=== PATIENT | male | born 1950 | race Caucasian/White ===

== ENCOUNTER → 2018-03-12 | Outpatient (CLI) | payer MEDICARE, MEDICAID ==
--- NOTE | 2018-03-12 17:14 | PCVCIMAG ---
EXAM: BILATERAL CAROTID DUPLEX INDICATION: Carotid Occlusive Disease. FINDINGS: Doppler Measurements (centimeters per second): RIGHT: Peak CCA-69, Peak ECA-60, Diastolic ICA-21, Peak ICA-66, ICA/CCA Ratio-1.0. LEFT: Peak CCA-71, Peak ECA-80, Diastolic ICA-23, Peak ICA-76, ICA/CCA Ratio-1.1. RIGHT CAROTID: The carotid bulb has mild plaque. The proximal internal carotid artery shows <40% stenosis. The common carotid artery shows no significant stenosis. The external carotid artery shows no significant stenosis. LEFT CAROTID: The carotid bulb has no significant plaque. The proximal internal carotid artery shows no significant stenosis. The common carotid artery shows no significant stenosis. The external carotid artery shows no significant stenosis. Antegrade flow in both vertebral arteries. IMPRESSION: <40% stenosis of the right internal carotid artery with mild plaque. No significant stenosis of the left internal carotid artery with no significant plaque. LOC:[place] [id number]
--- NOTE | 2018-03-12 17:18 | PCVCIMAG ---
APPROVED REPORT Study performed: 03/12/2018 14:16:22 EXAM: Comprehensive 2D, Doppler, and color-flow Echocardiogram Patient Location: Echo lab [facility] BSA: 1.95 HR: 70 bpmBP: 140/80 mmHg Rhythm: NSR Other Information Study Quality: Good Risk Factors: Cardiac Risk Factors: HTN Indications Fatigue Chest Pain 2D Dimensions IVSd: 8.74 (7-11mm)LVOT Diam: 21.75 (18-24mm) LVDd: 45.46 mm PWd: 7.09 (7-11mm)Ascending Ao: 36.79 (22-36mm) LVDs: 25.09 (25-40mm) Left Atrium: 35.79 (27-40mm) Aortic Root: 30.17 mm LV Single Plane 4CH: 55.13 % LV Single Plane 2CH: 65.90 %Jeffery's LVEF: 60.51 % Biplane EF: 61.4 % Volumes Left Atrial Volume (Systole) Single Plane 4CH: 48.33 mLSingle Plane 2CH: 72.90 mL Biplane LA Volume: 63.00 mLLA ESV Index: 32.00 mL/m2 Aortic Valve AoV Peak Pedrito.: 1.47 m/s AO Peak Gr.: 8.65 mmHgLVOT Max P.11 mmHg LVOT Max V: 1.01 m/s WALDO Vmax: 2.56 cm2 Mitral Valve E/A Ratio: 1.5 MV Decel. Time: 116.34 ms MV E Max Pedrito.: 0.80 m/s MV A Pedrito.: 0.54 m/s IVRT: 62.28 ms TDI E/Lateral E': 7.27E/Medial E': 10.00 Medial E' Pedrito.: 0.08 m/s Lateral E' Pedrito.: 0.11 m/s Pulmonary Valve PV Peak Pedrito.: 1.04 m/sPV Peak Gr.: 4.29 mmHg Pulmonary Vein P Vein S: 0.65 m/sP Vein A: 0.24 m/s P Vein D: 0.60 m/sP Vein A Dur.: 58.8 msec P Vein S/D Ratio: 1.08 Tricuspid Valve TR Peak Pedrito.: 2.30 m/s TR Peak Gr.: 21.13 mmHg TV Vmax: 0.84 m/sPA Pressure: 28.00 mmHg Left Ventricle The left ventricle is normal size. Distal septal hypokinesis. There is normal left ventricular wall thickness. Left ventricular systolic function is normal. The left ventricular ejection fraction is within the normal range. LVEF is 60-65%. The left ventricular diastolic function is normal. Right Ventricle The right ventricle is normal size. The right ventricular systolic function is normal. Atria The left atrium size is normal. The right atrium size is normal. Aortic Valve Aortic valve is trileaflet. No aortic regurgitation is present. There is no aortic valvular stenosis. Mitral Valve The mitral valve is normal in structure. There is no mitral valve regurgitation noted. No evidence of mitral valve stenosis. Tricuspid Valve The tricuspid valve is normal in structure. Trace to mild tricuspid regurgitation with a PA pressure of 28 mmHg. Pulmonic Valve The pulmonary valve is normal in structure. There is no pulmonic valvular regurgitation. Great Vessels The aortic root is normal in size. The ascending aorta is normal in size. Aortic arch is normal in caliber. IVC is normal in size and collapses with >50% inspiration Pericardium There is no pericardial effusion. There is no pleural effusion. <Conclusion> The left ventricle is normal size. Distal septal hypokinesis. LVEF is 60-65%. The left ventricular diastolic function is normal. The left atrium size is normal. Aortic valve is trileaflet. There is no aortic valvular stenosis. There is no mitral valve regurgitation noted. Trace to mild tricuspid regurgitation with a PA pressure of 28 mmHg. The aortic root is normal in size. There is no pericardial effusion.
== END | disposition home or self-care (01) ==
LOC: PCVCIMAG 14:57
PROVIDERS: ATTEND Internal Medicine Cardiovascular Disease
DX: I65.21 Occlusion and stenosis of right carotid artery (principal); R07.9 Chest pain, unspecified; I10 Essential (primary) hypertension; F31.9 Bipolar disorder, unspecified; R53.83 Other fatigue; R68.89 Other general symptoms and signs; E78.00 Pure hypercholesterolemia, unspecified; H53.2 Diplopia; Z82.49 Family history of ischemic heart disease and other diseases of the circulatory system
CPT/HCPCS: 80061; 93005; 93306; 93880; G0463

== ENCOUNTER → 2018-03-24 | Outpatient (CLI) | payer MEDICARE, MEDICAID ==
--- NOTE | 2018-03-24 16:04 | PCVCIMAG ---
EXAM: DUPLEX ULTRASOUND OF THE RIGHT GROIN INDICATION: Groin swelling and pain. FINDINGS: No pseudoaneurysm is present. The common femoral artery and vein are patent. No arteriovenous fistula is seen. IMPRESSION: Study is negative for pseudoaneurysm. LOC:[id number]
== END | disposition home or self-care (01) ==
LOC: PCVCIMAG 12:19
PROVIDERS: ATTEND Internal Medicine Cardiovascular Disease
DX: R10.30 Lower abdominal pain, unspecified (principal); I10 Essential (primary) hypertension; E78.5 Hyperlipidemia, unspecified; R09.89 Other specified symptoms and signs involving the circulatory and respiratory systems; E11.9 Type 2 diabetes mellitus without complications; Z79.4 Long term (current) use of insulin
CPT/HCPCS: 93926